=== PATIENT | female | born 1965 | race Caucasian/White ===

== ENCOUNTER → 2022-02-02 08:14 | Outpatient (CLI) | payer OTHER, SELFPAY ==
--- NOTE | ~2022-02-02 | CT_ITS ---
This report was recreated 02/28/2022. Original report was signed by Mike Araujo MD on 022. EXAMINATION: CT chest abdomen pelvis w con DATE: 02/02/2022 08:54 INDICATION: Elevated liver enzymes, history of lymphoma TECHNIQUE: Transaxial computed tomographic images of the chest, abdomen, and pelvis were obtained aft er the administration of 100 cc of Omnipaque 350 intravenous contrast. The dose-length product (DLP) was 987.95 mGy-cm. Automated exposure control and iterative reconstruction technique were employed. COMPARISON: None FINDINGS: CHEST CT: There is a 4 mm nodule of the left lower lobe on image 111. There are two adjacent 3 mm subpleural no dules of the right upper lobe on image 66. The lungs are free of acute opacities. No pleural effusion or pneumothorax. Thyroid nodules measure up to 7 mm. No pathologically enlarged thoracic lymph nodes are identified. The heart size is normal. ABDOMEN/PELVIS CT: The liver, spleen, pancreas, gallbladder, and adrenal glands are normal. The kidneys are unremarkable . No pathologically enlarged abdominal or pelvic lymph nodes are identified. There is no free intrape ritoneal gas or evidence of bowel obstruction. There is severe lumbar spondylosis at L5-S1. IMPRESSION: 1. No CT correlate for the patient's symptoms. 2. Pulmonary nodules measuring up to 4 mm. Consider follow-up CT in 12 months. Reviewed, dictated and finalized at location B.
--- NOTE | ~2022-02-02 | CT_ITS ---
EXAMINATION: CT chest abdomen pelvis w con DATE: 02/02/2022 08:54 INDICATION: Elevated liver enzymes, history of lymphoma TECHNIQUE: Transaxial computed tomographic images of the chest, abdomen, and pelvis were obtained aft er the administration of 100 cc of Omnipaque 350 intravenous contrast. The dose-length product (DLP) was 987.95 mGy-cm. Automated exposure control and iterative reconstruction technique were employed. COMPARISON: None FINDINGS: CHEST CT: There is a 4 mm nodule of the left lower lobe on image 111. There are two adjacent 3 mm subpleural no dules of the right upper lobe on image 66. The lungs are free of acute opacities. No pleural effusion or pneumothorax. Thyroid nodules measure up to 7 mm. No pathologically enlarged thoracic lymph nodes are identified. The heart size is normal. ABDOMEN/PELVIS CT: The liver, spleen, pancreas, gallbladder, and adrenal glands are normal. The kidneys are unremarkable . No pathologically enlarged abdominal or pelvic lymph nodes are identified. There is no free intrape ritoneal gas or evidence of bowel obstruction. There is severe lumbar spondylosis at L5-S1. IMPRESSION: 1. No CT correlate for the patient's symptoms. 2. Pulmonary nodules measuring up to 4 mm. Consider follow-up CT in 12 months. Reviewed, dictated and finalized at location B.
== END ==
PROVIDERS: PCP Family Medicine
DX: C85.10 Unspecified B-cell lymphoma, unspecified site (principal); R74.8 Abnormal levels of other serum enzymes; R91.8 Other nonspecific abnormal finding of lung field
CPT/HCPCS: 99199; 71260; 74177; Q9967